=== PATIENT | male | born 1935 | race Caucasian/White ===

== ENCOUNTER 2016-04-03 07:35 | Outpatient (CLI) | payer MEDICARE ==
[2016-04-03 12:10] LABS: INR-International Normal Ratio 2.2; Prothrombin Time 24.2 SEC (12.0-14.7)
== END 2016-04-03 07:36 | disposition home or self-care (01) ==
LOC: MADLAB 07:35
PROVIDERS: ATTEND Internal Medicine Cardiovascular Disease
DX: I48.91 Unspecified atrial fibrillation (principal)
CPT/HCPCS: 36415; 85610

== ENCOUNTER 2016-04-29 12:59 | Emergency (ER) | payer MEDICARE ==
[2016-04-29] MEDS ORDERED: Labetalol HCl 100 MG/20 ML VIAL ONE (14:07)
[2016-04-29 14:24] LABS: INR-International Normal Ratio 2.5; PTT 37.7 SEC (22.9-36.1); Prothrombin Time 26.9 SEC (12.0-14.7)
[2016-04-29 14:27] LABS: #Basophils 0.1 thou/uL (0.0-0.2); #Eosinphils 0.2 thou/uL (0.0-0.7); #Lymphocytes 1.6 thou/uL (1.20-3.40); #Monocytes 0.7 thou/uL (0.11-0.59); #Neutrophils 6.9 thou/uL (1.40-6.50); %Basophils 1.4 % (0.0-1.0); %Eosinophils 2.3 % (0.0-10.0); %Lymphocytes 16.5 % (21.0-51.0); %Monocytes 7.5 % (0.0-10.0); %Neutrophils 72.2 % (42.0-75.0); Hemoglobin 15.3 g/dL (14.0-18.0); Mean Corpuscular HGB CONC 32.4 g/dL (32.0-36.0); Mean Corpuscular Hemoglobin 28.9 pg (27.0-31.0); Mean Corpuscular Volume 89.1 fl (80.0-94.0); Mean Platelet Volume 8.2 fL (7.4-10.4); Platelet Count 273 thou/uL (130-400); RBC Distribution Width 17.2 % (11.5-14.5); Red Blood Cell (RBC) Count 5.31 mill/uL (4.70-6.10); White Blood Cell (WBC) Count 9.5 thou/uL (4.8-10.8)
[2016-04-29 14:36] LABS: ALT (SGPT) 15 U/L (0-55); AST (SGOT) 22 U/L (5-34); Alkaline Phosphatase 202 U/L (40-150); Anion Gap 17 mmol/L (10-20); BUN (Urea Nitrogen) 22 mg/dL (8.4-25.7); Bilirubin, Total 0.8 mg/dL (0.2-1.2); CK (CPK) 61 U/L (30-200); Calc. Creatinine Clearance 0 mL/min (70-130); Calcium 9.4 mg/dL (7.8-10.44); Carbon Dioxide 25 mmol/L (23-31); Chloride 102 mmol/L (98-107); Estimated GFR-MDRD 67; Glucose 106 mg/dL (83-110); Potassium 4.1 mmol/L (3.5-5.1); Sodium 140 mmol/L (136-145)
[2016-04-29] MEDS ORDERED: Triple Antibiotic Oint 1 GM Packet ONE (14:39)
[2016-04-29 14:43] LABS: CKMB 1.7 ng/mL (0-6.6); Troponin I Less than 0.010 ng/mL (< 0.028)
--- NOTE | 2016-04-29 15:10 | RAD ---
CHEST ONE VIEW: History: Dyspnea. Comparison: 11-26-14 FINDINGS: Portable upright chest demonstrates cardiopulmonary and pulmonary vascular prominence. Diffuse reti cular nodular opacities are noted. Small left sided pleural effusion is suspected. There are paren chymal changes in both lung bases. No pneumothorax. IMPRESSION: Congestive heart failure. Superimposed pneumonia in the lung bases cannot be excluded. Continues s urveillance is excluded. POS: [facility]
--- NOTE | 2016-04-29 16:41 | ERRECORD ---
[facility] EMERGENCY RECORD HPI WEAK-DIZZY (14:20 LLDO) CHIEF COMPLAINT: Patient presents for evaluation of weakness, Patient presents for evaluation of dizziness, Patient presents for evaluation of had an episode of sinus pressure and dizziness. while out and running errands this morning. all sx now gone and pt feels perfectly normal. HISTORIAN: History provided by patient, History provided by patient's family. LOCATION: Symptoms are generalized. QUALITY: Patient is alert and oriented to person, place and time, Hubbard coma score is 15, denies any pain, earlier or now. TIME COURSE: Sudden onset of symptoms, Symptoms have resolved. ASSOCIATED WITH: No associated symptoms. EXACERBATED BY: Patient's condition exacerbated by nothing. RELIEVED BY: Patient's condition relieved by time. ROS CONSTITUTIONAL: Negative constitutional review of systems, had some sinus pressure this morning but not now. (14:14 LLDO) EYES: Negative eye review of systems, Historian denies eye pain, denies eye redness, denies eye discharge. (14:18 LLDO) ENT: Historian reports sinus pain, now gone. (14:14 LLDO) CARDIOVASCULAR: Negative cardiovascular review of systems, Historian denies chest pain, no radiation, Historian denies diaphoresis, denies paroxysmal nocturnal dyspnea, denies syncope. (14:18 LLDO) RESPIRATORY: Negative respiratory review of systems, Historian denies cough, denies shortness of breath, denies sputum. (14:18 LLDO) GI: Negative gastrointestinal review of systems, Historian denies abdominal pain, denies constipation, denies diarrhea, denies nausea, denies vomiting. (14:18 LLDO) MUSCULOSKELETAL: Negative musculoskeletal review of systems, Historian denies arthralgias, denies fall, denies injury, denies myalgias. (14:18 LLDO) NEUROLOGIC: Historian reports dizziness, but not now. says the dizziness is now gone. (14:14 LLDO) HEMO/LYMPHATIC: Normal hematologic/lymphatic system review, Historian denies abnormal blood clotting, denies gum bleeding, denies petechiae. (14:18 LLDO) ALLERGIC/IMMUNOLOGIC: Normal allergy/immunologic system review, Historian denies eczema, denies environmental allergies, denies food allergies. (14:18 LLDO) PSYCHIATRIC: Negative psychiatric review of systems, Historian denies alcohol abuse, denies anxiety, denies depression, denies drug abuse, denies hallucinations. (14:18 LLDO) NOTES: All systems reviewed, negative except as described above. (14:14 LLDO) &a-1R&a+25V*p+0X*[id number]*c202B*c15G*c2P*p-0X&a-25V&a+1R Name: Howard Wallace : 1935 M81 MedRec: [id number] AcctNum: [id number] Prepared: Jerilyn Apr 29, 2016 17:55 by Interface Page 1 of 4 pMD [facility] EMERGENCY RECORD PAST MEDICAL HISTORY MEDICAL HISTORY: Past medical history includes cardiac history, arrhythmia, atrial fibrillation, Past medical history includes history of hyperlipidemia, Past medical history includes history of hypertension, Past medical history includes history of malignancy, bladder ca, Past medical history includes pulmonary disease, chronic obstructive pulmonary disease. (13:14 SCHI) MALE SURGICAL HISTORY: bladder , heart cath. (13:14 SCHI) SOCIAL HISTORY: Patient is a former tobacco user. (13:14 SCHI) NOTES: Nursing records reviewed, Agree with nursing records, Medication list reviewed. (14:18 LLDO) KNOWN ALLERGIES No Known Drug Allergies CURRENT MEDICATIONS (13:31 SCHI) Aspir-81: TABLET, DELAYED RELEASE (ENTERIC COATED) : Strength - 81 mg : ORAL Patient Dose: 1 tab(s) Oral once a day.today. atenolol: TABLET : Strength - 25 mg : ORAL Patient Dose: 100 once a day. pravastatin: TABLET : Strength - 20 mg : ORAL Patient Dose: 40 mg/min null once a day. ProAir HFA: HFA AEROSOL WITH ADAPTER (GRAM) : Strength - 90 mcg : INHALATION Patient Dose: every 4 hours prn. Symbicort: HFA AEROSOL WITH ADAPTER (GRAM) : Strength - 160 mcg-4.5 mcg/actuation : INHALATION Patient Dose: 2 puff(s) Inhaler 2 times a day. Avodart: CAPSULE : Strength - 0.5 mg : ORAL Patient Dose: once a day. Coumadin: TABLET : Strength - 4 mg : ORAL Patient Dose: once a day. Cardizem LA: TABLET, EXTENDED RELEASE 24 HR : Strength - 360 mg : ORAL Patient Dose: once a day. VITAL SIGNS VITAL SIGNS: BP: 170/122, Pulse: 121, Resp: 20 (Non-Labored), Temp: 98 (Tympanic), Pain: 0, O2 sat: 90, Time: 04/29/2016 13:00. (13:00 SCHI) BP: 181/111, Pulse: 131, Resp: 20, Pain: 0, O2 sat: 91 on Room Air, Time: 04/29/2016 13:55. (13:55 SCHI) &a-1R&a+25V*p+0X*[id number]*c202B*c15G*c2P*p-0X&a-25V&a+1R Name: Howard Wallace : 1935 M81 MedRec: [id number] AcctNum: [id number] Prepared: Jerilyn Apr 29, 2016 17:55 by Interface Page 2 of 4 pMD [facility] EMERGENCY RECORD BP: 172/103, Pulse: 105, Time: 04/29/2016 14:34. (14:34 SCHI) BP: 158/108, Pulse: 100, Resp: 18, Time: 04/29/2016 14:51. (14:51 SCHI) BP: 171/114, Pulse: 90, Time: 04/29/2016 15:00. (15:00 SCHI) BP: 132/100, Pulse: 97, Time: 04/29/2016 15:13. (15:13 SCHI) BP: 164/101, Pulse: 89, Time: 04/29/2016 15:39. (15:39 SCHI) BP: 172/107, Pulse: 87, Resp: 18, Temp: 98.1 (Tympanic), Pain: 0, O2 sat: 90 on Room Air, Time: 04/29/2016 16:00. (16:00 SCHI) PHYSICAL EXAM CONSTITUTIONAL: Vital signs reviewed, Patient afebrile, Pulse, was 131 on arrival but 106 now, Blood pressure, BP ELEVATED. says he forgot to take his bp meds this morning, Respiratory rate normal, Patient appears non toxic, Patient appears pain free, Patient alert and oriented to person, place and time. (14:16 LLDO) HEAD: Head exam normal, Head exam included findings of head atraumatic, normocephalic. (14:18 LLDO) EYES: Eye exam normal, Eye exam included findings of eyelids normal to inspection, Pupils equally round and reactive to light, Extraocular muscles intact. (14:18 LLDO) ENT: ENT exam normal, Ear exam normal, Nose exam normal. (14:18 LLDO) NECK: Neck exam normal, Neck exam included findings of normal range of motion, Trachea midline, no meningeal signs, no tenderness. (14:18 LLDO) RESPIRATORY CHEST: Respiratory and chest exam normal, Respiratory exam included findings of no respiratory distress, Breath sounds clear, Chest exam included findings of chest movement symmetrical, Chest expansion equal. (14:18 LLDO) CARDIOVASCULAR: Cardiovascular assessment normal, Cardiovascular exam included findings of heart rate regular rate and rhythm, Heart sounds normal. (14:18 LLDO) ABDOMEN MALE: Abdominal exam normal, Abdominal exam included findings of abdomen nontender, Bowel sounds normal, no peritoneal signs. (14:18 LLDO) BACK: Back exam normal, Back exam included findings of normal inspection, range of motion normal. (14:18 LLDO) UPPER EXTREMITY: Upper extremity exam normal, Upper extremity exam included findings of inspection normal, Range of motion normal. (14:18 LLDO) LOWER EXTREMITY: Lower extremity exam normal, Lower extremity exam included findings of inspection normal, Range of motion normal. (14:18 LLDO) NEURO: Neuro exam normal, Neuro exam findings include patient oriented to person, place and time, Speech normal, Hubbard coma scale 15. (14:18 LLDO) SKIN: Skin exam normal, Skin exam included findings of skin warm, dry, and normal in color, no rash. (14:18 LLDO) PSYCHIATRIC: Psychiatric exam normal, Psychiatric exam included findings of patient oriented to person place and time, Normal affect, &a-1R&a+25V*p+0X*t9901L*c202B*c15G*c2P*p-0X&a-25V&a+1R Name: Howard Wallace Jimena : 1935 M81 MedRec: [id number] AcctNum: [id number] Prepared: Jerilyn Apr 29, 2016 17:55 by Interface Page 3 of 4 pMD [facility] EMERGENCY RECORD Judgment normal. (14:18 LLDO) MEDICATION ADMINISTRATION SUMMARY Drug Name: labetalol intravenous, Dose Ordered: 10 mg, Route: IV Push, Status: Given, Time: 15:12 04/29/2016, Drug Name: Cardizem intravenous, Dose Ordered: 10 mg, Route: IV Push, Status: Given, Time: 15:11 04/29/2016, Drug Name: Cardizem intravenous, Dose Ordered: 10 mg, Route: IV Push, Status: Given, Time: 14:23 04/29/2016, Drug Name: labetalol intravenous, Dose Ordered: 10 mg, Route: IV Push, Status: Given, Time: 14:17 04/29/2016, Detailed record available in Medication Service section. DOCTOR NOTES (16:05 LLDO) TEXT: bp moving in the right direction. labs all good except for an elevated bnp and some xray evidence of chf. discussed this with him and he will f/u with parking cashier, dr. sanchez. PROBLEM LIST No recorded problems DIAGNOSIS (16:08 LLDO) FINAL: PRIMARY: Hypertension, ADDITIONAL: CHF. PRESCRIPTION (16:09 LLDO) Lasix oral: TABLET : 20 mg : ORAL : Quantity: 1 Unit: tab(s) Route: ORAL Schedule: once a day (in the morning) Dispense: 30 Unit: tab(s) May substitute. Refills: 1 . NOTES: No Refills. DISPOSITION PATIENT: Disposition Type: Discharge, Disposition: *Discharge Home. (16:08 LLDO) [facility] left the department. [facility]16:32 [facility] Ash: LLDO=MD Hanh, Andrae SCHI=EMMA Berger, Gentryinda &a-1R&a+25V*p+0X*[id number]*c202B*c15G*c2P*p-0X&a-25V&a+1R Name: Howard Wallace : 1935 M81 MedRec: [id number] AcctNum: [id number] Prepared: Jerilyn Apr 29, 2016 17:55 by Interface Page 4 of 4 pMD MTDD
--- NOTE | 2016-04-29 16:47 | PICIS ---
[facility] EMERGENCY RECORD TRIAGE (SatApr 29, 2016 13:12 SCHI) TRIAGE NOTES: SINUS PRESSURE THIS MORNING, DIZZY AND FELL, FEELS FINE NOW. (SatApr 29, 2016 13:12 SCHI) PATIENT: NAME: Howard Wallace, AGE: 81, GENDER: male, : Sat 1935, TIME OF GREET: SatApr 29, 2016 12:59, PREFERRED LANGUAGE: Turkish, ETHNICITY: Not or , FALL RISK: NO, ECODE BILLING MAP: [facility], SSN: [id number], Zip Code: [address], KG WEIGHT: 87.54, PHONE: CELL, , , PERSON ID: [id number], PCP: MD RADER IMELDA. ([place] Apr 29, 2016 13:12 SCHI) COMPLAINT: FALL/HNT. ([place] Apr 29, 2016 13:12 SCHI) ADMISSION: URGENCY: 3 Urgent, ADMISSION SOURCE: Home, TRANSPORT: AMBULANCE - [facility], BED: ED -01. ([place] Apr 29, 2016 13:12 SCHI) ASSESSMENT: Assessment: ALERT AND ORIENTED X 4, SKIN WARM AND DRY RESP EVEN AND UNLABORED,. (13:14 SCHI) PAIN: No complaint of pain. (13:14 SCHI) TRIAGE SCREENING: Patient denies suicidal ideation, Patient denies presence of domestic violence. (13:14 SCHI) TREATMENTS IN PROGRESS: See EMS Record. (13:14 SCHI) PROVIDERS: TRIAGE NURSE: Charlotte Berger RN. ([place] Apr 29, 2016 13:12 SCHI) VITAL SIGNS: BP 170/122, Pulse 121, Resp 20, (Non-Labored), Temp 98, (Tympanic), Pain 0, O2 Sat 90, Time 04/29/2016 13:00. (13:00 SCHI) PREVIOUS VISIT ALLERGIES: No Known Allergies. ([place] Apr 29, 2016 13:12 SCHI) No Known Allergies. (13:14 SCHI) KNOWN ALLERGIES No Known Drug Allergies CURRENT MEDICATIONS (13:31 SCHI) Aspir-81: TABLET, DELAYED RELEASE (ENTERIC COATED) : Strength - 81 mg : ORAL Patient Dose: 1 tab(s) Oral once a day.today. atenolol: TABLET : Strength - 25 mg : ORAL Patient Dose: 100 once a day. pravastatin: TABLET : Strength - 20 mg : ORAL Patient Dose: 40 mg/min null once a day. ProAir HFA: HFA AEROSOL WITH ADAPTER (GRAM) : Strength - 90 mcg : INHALATION Patient Dose: every 4 hours prn. Symbicort: HFA AEROSOL WITH ADAPTER (GRAM) : Strength - 160 mcg-4.5 mcg/actuation : INHALATION Patient Dose: 2 puff(s) Inhaler 2 times a day. Avodart: CAPSULE : Strength - 0.5 mg : ORAL Patient Dose: once a day. &a-1R&a+25V*p+0X*i4604R*c202B*c15G*c2P*p-0X&a-25V&a+1R Name: Howard Wallace : 1935 M81 MedRec: [id number] AcctNum: [id number] Prepared: Jerilyn Apr 29, 2016 18:00 by Interface Page 1 of 11 pMD [facility] EMERGENCY RECORD Coumadin: TABLET : Strength - 4 mg : ORAL Patient Dose: once a day. Cardizem LA: TABLET, EXTENDED RELEASE 24 HR : Strength - 360 mg : ORAL Patient Dose: once a day. VITAL SIGNS VITAL SIGNS: BP: 170/122, Pulse: 121, Resp: 20 (Non-Labored), Temp: 98 (Tympanic), Pain: 0, O2 sat: 90, Time: 04/29/2016 13:00. (13:00 SCHI) BP: 181/111, Pulse: 131, Resp: 20, Pain: 0, O2 sat: 91 on Room Air, Time: 04/29/2016 13:55. (13:55 SCHI) BP: 172/103, Pulse: 105, Time: 04/29/2016 14:34. (14:34 SCHI) BP: 158/108, Pulse: 100, Resp: 18, Time: 04/29/2016 14:51. (14:51 SCHI) BP: 171/114, Pulse: 90, Time: 04/29/2016 15:00. (15:00 SCHI) BP: 132/100, Pulse: 97, Time: 04/29/2016 15:13. (15:13 SCHI) BP: 164/101, Pulse: 89, Time: 04/29/2016 15:39. (15:39 SCHI) BP: 172/107, Pulse: 87, Resp: 18, Temp: 98.1 (Tympanic), Pain: 0, O2 sat: 90 on Room Air, Time: 04/29/2016 16:00. (16:00 SCHI) NURSING ASSESSMENT: NEURO (13:23 SCHI) GCS: (6) Obeying command:, (5) Orientated:, (4) Spontaneous eye opening., Result: 15. NIHSS: CVA assessment findings: Level of consciousness: alert, keenly responsive (0), Questions: answers both questions correctly (0), Commands: performs both tasks correctly (0), Best gaze: normal (0), Visual: no visual loss (0), Facial palsy: normal symmetrical movement (0), Motor arm left: no drift, arm stays 90/45 degrees for full 10 seconds (0), Motor arm right: no drift, arm stays 90 or45 degrees for full 10 seconds (0), Motor left leg: no drift, leg stays at 30 degrees for full five seconds (0), Motor right leg: no drift, leg stays at 30 degrees for full five seconds (0), Limb ataxia: absent -if 0, go to sensory (0), Sensory: normal, no sensory loss (0), Best language: no aphasia; normal (0), Dysarthria: normal (0), Extinction and Inattention: normal (0), Total score 0. CONSTITUTIONAL: Patient arrives, via stretcher, via [facility], Gait steady, History obtained from patient, Patient appears comfortable, Patient cooperative, Patient alert, Oriented to person, place and time, Skin warm, Skin dry, Skin normal in color, Mucous membranes pink, Mucous membranes moist, Patient is well-groomed, Patient complains of DIZZINESS, fell to knees, c/o sinus pressure this morning and took tylenol. PAIN: Patient rates pain as 0 out of 10. NEURO: Pupils equally round and reactive to light, Able to close eyes, Face symmetrical, Speech normal, Associated with dizziness described as, feelings of movement. NURSING PROCEDURE: TRAIN CONTROL ELECTRONIC TECHNICIAN (13:23 SCHI) TRAIN CONTROL ELECTRONIC TECHNICIAN: Patient placed on athletic monitor, Patient &a-1R&a+25V*p+0X*b1977R*c202B*c15G*c2P*p-0X&a-25V&a+1R Name: Howard Wallace : 1935 M81 MedRec: [id number] AcctNum: [id number] Prepared: Jerilyn Apr 29, 2016 18:00 by Interface Page 2 of 11 pMD [facility] EMERGENCY RECORD placed on non-invasive blood pressure monitor, Patient placed on continuous pulse oximetry, Adult/pediatric oxisensor applied. NURSING PROCEDURE: DISCHARGE NOTE (16:25 SCHI) DISCHARGE: Patient discharged to home, ambulating without assistance, family driving, accompanied by other family member, Summary of Care printed/ provided, Patient requested and was provided an electronic copy of Discharge Instructions, Transition record given to patient, Discharge instructions given to patient, Simple or moderate discharge teaching performed, Prescriptions given and instructions on side effects given, Medication reconciliation form given, Above person(s) verbalized understanding of discharge instructions and follow-up care, Patient treated and evaluated by physician. BELONGINGS: Belongings and valuables with patient at time of discharge include:, Belongings remain with patient, Valuables remain with patient. SAFETY: Side rails up, Cart/Stretcher in lowest position, Family at bedside, Hospital ID band on. NURSING PROCEDURE: EKG CHART (13:55 SCHI) PATIENT IDENTIFIER: Patient actively involved in identification process, Patient's identity verified by patient stating name, Patient's identity verified by patient stating date. EKG: EKG indicated for complaint of palpitations, 12 lead EKG performed on the left chest, done by CAITIE RN. NOTES: Emotional support needed and given, Patient tolerated procedure well. SAFETY: Side rails up, Cart/Stretcher in lowest position, Family at bedside, Hospital ID band on. NURSING PROCEDURE: IV PATIENT IDENITIFIER: Patient actively involved in identification process, Patient's identity verified by patient stating name, Patient's identity verified by patient stating date, Patient's identity verified by hospital ID bracelet. (13:55 SCHI) IV SITE 1: IV therapy indicated for hydration, IV therapy indicated for medication administration, IV established, to the right antecubital, using a 20 gauge catheter, in one attempt, IV site prepped with chloraprep, Saline lock established, Flushed with normal saline (mls): 10, Labs drawn at time of placement, labeled in the presence of the patient and sent to lab. (13:55 SCHI) FOLLOW-UP SITE 1: IV discontinued, due to patient being discharged, catheter intact. (16:25 SCHI) NURSING PROCEDURE: NURSE NOTES NURSES NOTES: Notes: all times are approximate due to care being provided, then documented. (13:23 SCHI) Notes: he remembered that he did not take one of his bp meds this morning "the 360 one". (14:15 SCHI) &a-1R&a+25V*p+0X*b8023X*c202B*c15G*c2P*p-0X&a-25V&a+1R Name: Howard Wallace : 1935 M81 MedRec: [id number] AcctNum: [id number] Prepared: Jerilyn Apr 29, 2016 18:00 by Interface Page 3 of 11 D [facility] EMERGENCY RECORD NURSING PROCEDURE: WOUND CARE (14:52 SCHI) PATIENT IDENTIFIER: Patient actively involved in identification process, Patient's identity verified by hospital ID bracelet. WOUND CARE: Wound site: rt forearm and rt knee, Cause of wound: abrasions from fall, Wound cleansed with Hibiclens. FOLLOW-UP: After procedure, simple dressing applied, using 4x4 dressing, using telfa pad dressing, wrapped with 2 inch coban, NORAH 1 PACKAGE, After procedure, capillary refill less than 2 seconds, After procedure, distal circulation intact, After procedure, distal motor intact, After procedure, distal sensation intact, After procedure, distal pulses present. NOTES: Patient tolerated procedure well. ORDER DETAILS Order Name: B type Natriuretic Peptide, Status: Active, Time: 14:00 04/29/2016, User: TWAN, - Ordered for: MD Schafer Lloyd, - Entered by: MD Schafer Lloyd - Jerilyn Apr 29, 2016 14:00, - Quantity: 1, Order Name: TRAIN CONTROL ELECTRONIC TECHNICIAN ED, Status: Done, Time: 14:02 04/29/2016, User: JANESSA, - Ordered for: MD Schafer Lloyd, - Entered by: MD Schafer Lloyd - Sun Apr 29, 2016 14:01, - Quantity: 1, Order Name: Cardiac Profile w/CKMB & Troponin - I, Status: Active, Time: 14:00 04/29/2016, User: TWAN, - Ordered for: MD Schafer Lloyd, - Entered by: MD Schafer Lloyd - Sun Apr 29, 2016 14:00, - Quantity: 1, Order Name: CBC with Differential, Status: Active, Time: 14:00 04/29/2016, User: LLDO, - Ordered for: MD Schafer Lloyd, - Entered by: MD Schafer Lloyd - Sun Apr 29, 2016 14:00, - Quantity: 1, Order Name: CK (CPK), Status: Active, Time: 14:01 04/29/2016, User: TWAN, - Ordered for: MD Schafer Lloyd, - Entered by: MD Schafer Lloyd - Sun Apr 29, 2016 14:01, - Quantity: 1, Order Name: Comprehensive Metabolic Panel, Status: Active, Time: 14:00 04/29/2016, User: TWAN, - Ordered for: MD Schafer Lloyd, - Entered by: MD Schafer Lloyd - Sun Apr 29, 2016 14:00, - Quantity: 1, Order Name: EKG 12 Lead in Emergency Room, Status: Active, Time: 14:01 04/29/2016, User: TWAN, - Ordered for: MD Schafer Lloyd, - Entered by: MD Schafer Lloyd - Sun Apr 29, 2016 14:01, &a-1R&a+25V*p+0X*s4324P*c202B*c15G*c2P*p-0X&a-25V&a+1R Name: Howard Wallace : 1935 M81 MedRec: [id number] AcctNum: [id number] Prepared: Jerilyn Apr 29, 2016 18:00 by Interface Page 4 of 11 D [facility] EMERGENCY RECORD - Quantity: 1, Order Name: Protime with INR, Status: Active, Time: 14:01 04/29/2016, User: LLDO, - Ordered for: MD Schafer Lloyd, - Entered by: MD Schafer Lloyd - Sun Apr 29, 2016 14:01, - Quantity: 1, Order Name: PTT, Status: Active, Time: 14:01 04/29/2016, User: TWAN, - Ordered for: MD Schafer Lloyd, - Entered by: MD Schafer Lloyd - Sun Apr 29, 2016 14:01, - Quantity: 1, Order Name: SALINE LOCK, Status: Done, Time: 14:02 04/29/2016, User: SCHI, - Ordered for: MD Schafer Lloyd, - Entered by: MD Schafer Lloyd - Sun Apr 29, 2016 14:01, - Quantity: 1, Order Name: Urinalysis w/ Rflx Microscopic, Status: Active, Time: 14:00 04/29/2016, User: TWAN, - Ordered for: MD Schafer Lloyd, - Entered by: MD Schafer Lloyd - Sun Apr 29, 2016 14:00, - Quantity: 1, Order Name: XR Chest 1 View Portable, Status: Active, Time: 14:01 04/29/2016, User: TWAN, - Ordered for: MD Schafer Lloyd, - Entered by: MD Schafer Lloyd - Sun Apr 29, 2016 14:01, - Quantity: 1. MEDICATION ADMINISTRATION SUMMARY Drug Name: labetalol intravenous, Dose Ordered: 10 mg, Route: IV Push, Status: Given, Time: 15:12 04/29/2016, Drug Name: Cardizem intravenous, Dose Ordered: 10 mg, Route: IV Push, Status: Given, Time: 15:11 04/29/2016, Drug Name: Cardizem intravenous, Dose Ordered: 10 mg, Route: IV Push, Status: Given, Time: 14:23 04/29/2016, Drug Name: labetalol intravenous, Dose Ordered: 10 mg, Route: IV Push, Status: Given, Time: 14:17 04/29/2016, Detailed record available in Medication Service section. MEDICATION SERVICE Cardizem intravenous: Order: Cardizem intravenous (diltiazem HCl) - Dose: 10 mg : IV Push Schedule: Now Ordered by: Andrae Schafer MD Entered by: MD Jerilyn Ley Apr 29, 2016 14:07 Documented as given by: EMMA Smart Apr 29, 2016 14:23 Patient, Medication, Dose, Route and Time verified prior to administration. IV SITE #1 IVP, subsequent different medication, Slowly, Catheter placement confirmed via flush prior to administration, IV site without signs or symptoms of infiltration during medication &a-1R&a+25V*p+0X*c2420K*c202B*c15G*c2P*p-0X&a-25V&a+1R Name: Howard Wallace : 1935 M81 MedRec: [id number] AcctNum: [id number] Prepared: SatApr 29, 2016 18:00 by Interface Page 5 of 11 pMD [facility] EMERGENCY RECORD administration, No swelling during administration, No drainage during administration, IV flushed after administration, Correct patient, time, route, dose and medication confirmed prior to administration, Patient advised of actions and side-effects prior to administration, Allergies confirmed and medications reviewed prior to administration. Cardizem intravenous: Order: Cardizem intravenous (diltiazem HCl) - Dose: 10 mg : IV Push Schedule: Now Ordered by: Andrae Schafer MD Entered by: MD Jerilyn Ley Apr 29, 2016 15:03 Documented as given by: EMMA Smart Apr 29, 2016 15:11 Patient, Medication, Dose, Route and Time verified prior to administration. IV SITE #1 IVP, repeat same medication, Catheter placement confirmed via flush prior to administration, IV site without signs or symptoms of infiltration during medication administration, No swelling during administration, No drainage during administration, IV flushed after administration, Correct patient, time, route, dose and medication confirmed prior to administration, Patient advised of actions and side-effects prior to administration, Allergies confirmed and medications reviewed prior to administration. labetalol intravenous: Order: labetalol intravenous (labetalol HCl) - Dose: 10 mg : IV Push Schedule: Now Ordered by: Andrae Schafer MD Entered by: MD Jerilyn Ley Apr 29, 2016 14:06 , Acknowledged by: EMMA Smart Apr 29, 2016 14:06 Documented as given by: EMMA Smart Apr 29, 2016 14:17 Patient, Medication, Dose, Route and Time verified prior to administration. IV SITE #1 IVP, initial medication, Catheter placement confirmed via flush prior to administration, IV site without signs or symptoms of infiltration during medication administration, No swelling during administration, No drainage during administration, IV flushed after administration, Correct patient, time, route, dose and medication confirmed prior to administration, Patient advised of actions and side-effects prior to administration, Allergies confirmed and medications reviewed prior to administration. labetalol intravenous: Order: labetalol intravenous (labetalol HCl) - Dose: 10 mg : IV Push Schedule: Now Ordered by: Andrae Schafer MD Entered by: MD Jerilyn Ley Apr 29, 2016 15:03 Documented as given by: EMMA Smart Apr 29, 2016 15:12 Patient, Medication, Dose, Route and Time verified prior to administration. IV SITE #1 IVP, repeat same medication. HPI WEAK-DIZZY (14:20 LLDO) CHIEF COMPLAINT: Patient presents for evaluation of &a-1R&a+25V*p+0X*d9141V*c202B*c15G*c2P*p-0X&a-25V&a+1R Name: Howard Wallace : 1935 M81 MedRec: [id number] AcctNum: [id number] Prepared: Jerilyn Apr 29, 2016 18:00 by Interface Page 6 of 11 pMD [facility] EMERGENCY RECORD weakness, Patient presents for evaluation of dizziness, Patient presents for evaluation of had an episode of sinus pressure and dizziness. while out and running errands this morning. all sx now gone and pt feels perfectly normal. HISTORIAN: History provided by patient, History provided by patient's family. LOCATION: Symptoms are generalized. QUALITY: Patient is alert and oriented to person, place and time, [place] coma score is 15, denies any pain, earlier or now. TIME COURSE: Sudden onset of symptoms, Symptoms have resolved. ASSOCIATED WITH: No associated symptoms. EXACERBATED BY: Patient's condition exacerbated by nothing. RELIEVED BY: Patient's condition relieved by time. ROS CONSTITUTIONAL: Negative constitutional review of systems, had some sinus pressure this morning but not now. (14:14 LLDO) EYES: Negative eye review of systems, Historian denies eye pain, denies eye redness, denies eye discharge. (14:18 LLDO) ENT: Historian reports sinus pain, now gone. (14:14 LLDO) CARDIOVASCULAR: Negative cardiovascular review of systems, Historian denies chest pain, no radiation, Historian denies diaphoresis, denies paroxysmal nocturnal dyspnea, denies syncope. (14:18 LLDO) RESPIRATORY: Negative respiratory review of systems, Historian denies cough, denies shortness of breath, denies sputum. (14:18 LLDO) GI: Negative gastrointestinal review of systems, Historian denies abdominal pain, denies constipation, denies diarrhea, denies nausea, denies vomiting. (14:18 LLDO) MUSCULOSKELETAL: Negative musculoskeletal review of systems, Historian denies arthralgias, denies fall, denies injury, denies myalgias. (14:18 LLDO) NEUROLOGIC: Historian reports dizziness, but not now. says the dizziness is now gone. (14:14 LLDO) HEMO/LYMPHATIC: Normal hematologic/lymphatic system review, Historian denies abnormal blood clotting, denies gum bleeding, denies petechiae. (14:18 LLDO) ALLERGIC/IMMUNOLOGIC: Normal allergy/immunologic system review, Historian denies eczema, denies environmental allergies, denies food allergies. (14:18 LLDO) PSYCHIATRIC: Negative psychiatric review of systems, Historian denies alcohol abuse, denies anxiety, denies depression, denies drug abuse, denies hallucinations. (14:18 LLDO) NOTES: All systems reviewed, negative except as described above. (14:14 LLDO) PAST MEDICAL HISTORY MEDICAL HISTORY: Past medical history includes cardiac &a-1R&a+25V*p+0X*t4352H*c202B*c15G*c2P*p-0X&a-25V&a+1R Name: Howard Wallace : 1935 M81 MedRec: [id number] AcctNum: [id number] Prepared: Jerilyn Apr 29, 2016 18:00 by Interface Page 7 of 11 pMD [facility] EMERGENCY RECORD history, arrhythmia, atrial fibrillation, Past medical history includes history of hyperlipidemia, Past medical history includes history of hypertension, Past medical history includes history of malignancy, bladder ca, Past medical history includes pulmonary disease, chronic obstructive pulmonary disease. (13:14 SCHI) MALE SURGICAL HISTORY: bladder , heart cath. (13:14 SCHI) SOCIAL HISTORY: Patient is a former tobacco user. (13:14 SCHI) NOTES: Nursing records reviewed, Agree with nursing records, Medication list reviewed. (14:18 LLDO) PHYSICAL EXAM CONSTITUTIONAL: Vital signs reviewed, Patient afebrile, Pulse, was 131 on arrival but 106 now, Blood pressure, BP ELEVATED. says he forgot to take his bp meds this morning, Respiratory rate normal, Patient appears non toxic, Patient appears pain free, Patient alert and oriented to person, place and time. (14:16 LLDO) HEAD: Head exam normal, Head exam included findings of head atraumatic, normocephalic. (14:18 LLDO) EYES: Eye exam normal, Eye exam included findings of eyelids normal to inspection, Pupils equally round and reactive to light, Extraocular muscles intact. (14:18 LLDO) ENT: ENT exam normal, Ear exam normal, Nose exam normal. (14:18 LLDO) NECK: Neck exam normal, Neck exam included findings of normal range of motion, Trachea midline, no meningeal signs, no tenderness. (14:18 LLDO) RESPIRATORY CHEST: Respiratory and chest exam normal, Respiratory exam included findings of no respiratory distress, Breath sounds clear, Chest exam included findings of chest movement symmetrical, Chest expansion equal. (14:18 LLDO) CARDIOVASCULAR: Cardiovascular assessment normal, Cardiovascular exam included findings of heart rate regular rate and rhythm, Heart sounds normal. (14:18 LLDO) ABDOMEN MALE: Abdominal exam normal, Abdominal exam included findings of abdomen nontender, Bowel sounds normal, no peritoneal signs. (14:18 LLDO) BACK: Back exam normal, Back exam included findings of normal inspection, range of motion normal. (14:18 LLDO) UPPER EXTREMITY: Upper extremity exam normal, Upper extremity exam included findings of inspection normal, Range of motion normal. (14:18 LLDO) LOWER EXTREMITY: Lower extremity exam normal, Lower extremity exam included findings of inspection normal, Range of motion normal. (14:18 LLDO) NEURO: Neuro exam normal, Neuro exam findings include patient oriented to person, place and time, Speech normal, [place] coma scale 15. (14:18 LLDO) &a-1R&a+25V*p+0X*f6406P*c202B*c15G*c2P*p-0X&a-25V&a+1R Name: Howard Wallace : 1935 M81 MedRec: [id number] AcctNum: [id number] Prepared: Jerilyn Apr 29, 2016 18:00 by Interface Page 8 of 11 pMD [facility] EMERGENCY RECORD SKIN: Skin exam normal, Skin exam included findings of skin warm, dry, and normal in color, no rash. (14:18 LLDO) PSYCHIATRIC: Psychiatric exam normal, Psychiatric exam included findings of patient oriented to person place and time, Normal affect, Judgment normal. (14:18 LLDO) EVENTS TRANSFER: Triage to Emergency Main ED -01. (Jerilyn Apr 29, 2016 13:12 SCHI) Removed from Emergency Main ED -01. (16:32 SCHI) DOCTOR NOTES (16:05 LLDO) TEXT: bp moving in the right direction. labs all good except for an elevated bnp and some xray evidence of chf. discussed this with him and he will f/u with business process consultant, dr. sanchez. PROBLEM LIST No recorded problems DIAGNOSIS (16:08 LLDO) FINAL: PRIMARY: Hypertension, ADDITIONAL: CHF. DISPOSITION PATIENT: Disposition Type: Discharge, Disposition: *Discharge Home. (16:08 LLDO) Patient left the department. (16:32 SCHI) INSTRUCTION (16:10 LLDO) DISCHARGE: CHF, GENERAL, HYPERTENSION, ESTABLISHED, OUT OF CONTROL. FOLLOWUP: MD PRASANTH, RASHI, [facility], [address] [place] [id number], [phone], Follow up with Primary Care Physician in 10-14 days. SPECIAL: Follow-up with your PCP. PRESCRIPTION (16:09 LLDO) Lasix oral: TABLET : 20 mg : ORAL : Quantity: 1 Unit: tab(s) Route: ORAL Schedule: once a day (in the morning) Dispense: 30 Unit: tab(s) May substitute. Refills: 1 . NOTES: No Refills. IMAGING MIST FORM: Image captured from scanner. (14:04 SCHI) AMBULANCE REPORT: Image captured from scanner. (14:04 SCHI) *DISCHARGE INSTRUCTIONS RECEIPT: Image captured from scanner. (16:30 SCHI) *SUPPLY CHARGE SHEET: Image captured from scanner. (16:30 SCHI) &a-1R&a+25V*p+0X*o7428Y*c202B*c15G*c2P*p-0X&a-25V&a+1R Name: Howard Wallace : 1935 M81 MedRec: [id number] AcctNum: [id number] Prepared: [place] Apr 29, 2016 18:00 by Interface Page 9 of 11 pMD [facility] EMERGENCY RECORD ADMIN DIGITAL SIGNATURE: EMMA Berger, [place]. (16:32 SCHI) MD Schafer Lloyd. (17:49 LLDO) RESULTS LABORATORY: CK (CPK) Collection DT: [place] Apr 29, 2016 14:15, CK (CPK) 61 U/L, Range (30-200). (14:38 SCHI) Comprehensive Metabolic Panel Collection DT: [place] Apr 29, 2016 14:15, Sodium 140 mmol/L, Range (136-145), Potassium 4.1 mmol/L, Range (3.5-5.1), Chloride 102 mmol/L, Range (98-107), Carbon Dioxide 25 mmol/L, Range (23-31), Anion Gap 17 mmol/L, Range (10-20), BUN (Urea Nitrogen) 22 mg/dL, Range (8.4-25.7), Creatinine 1.06 mg/dL, Range (0.7-1.3), Estimated GFR-MDRD 67 , Reference Range for Estimated GFR: Greater than 90, mL/min/1.73 m2 NOTE: The MDRD equation has not been validated for use, with the elderly (over 70 years of age), women, patients with, serious comorbid condition or persons with extremes of body size, muscle, mass, or nutritional status. , Glucose 106 mg/dL, Range (83-110), Calcium 9.4 mg/dL, Range (7.8-10.44), Bilirubin, Total 0.8 mg/dL, Range (0.2-1.2), Protein, Total 8.0 g/dL, Range (5.8-8.1), NOTE: Plasma values are generally 0.3 to 0.5 g/dL higher than serum values, due to the presence of fibrinogen. , Albumin 4.0 g/dL, Range (3.4-4.8), *Globulin 4.0 - H g/dL, Range (2.4-3.5), *Alb/Glob Ratio 1.0 - L g/dL, Range (1.2-2.2), *Alkaline Phosphatase 202 - H U/L, Range (40-150), AST (SGOT) 22 U/L, Range (5-34), ALT (SGPT) 15 U/L, Range (0-55). (14:38 SCHI) CBC with Differential Collection DT: Jerilyn Apr 29, 2016 14:15, White Blood Cell (WBC) Count 9.5 thou/uL, Range (4.8-10.8), Red Blood Cell (RBC) Count 5.31 mill/uL, Range (4.70-6.10), Hemoglobin 15.3 g/dL, Range (14.0-18.0), Hematocrit 47.3 %, Range (42.0-52.0), Mean Corpuscular Volume 89.1 fl, Range (80.0-94.0), Mean Corpuscular Hemoglobin 28.9 pg, Range (27.0-31.0), Mean Corpuscular HGB CONC 32.4 g/dL, Range (32.0-36.0), *RBC Distribution Width 17.2 - H %, Range (11.5-14.5), Platelet Count 273 thou/uL, Range (130-400), Mean Platelet Volume 8.2 fL, Range (7.4-10.4), %Neutrophils 72.2 %, Range (42.0-75.0), *%Lymphocytes 16.5 - L %, Range (21.0-51.0), %Monocytes 7.5 %, Range (0.0-10.0), %Eosinophils 2.3 %, Range (0.0-10.0), &a-1R&a+25V*p+0X*g6348K*c202B*c15G*c2P*p-0X&a-25V&a+1R Name: Howard Wallace : 1935 M81 MedRec: [id number] AcctNum: [id number] Prepared: Jerilyn Apr 29, 2016 18:00 by Interface Page 10 of 11 pMD [facility] EMERGENCY RECORD *%Basophils 1.4 - H %, Range (0.0-1.0), *#Neutrophils 6.9 - H thou/uL, Range (1.40-6.50), #Lymphocytes 1.6 thou/uL, Range (1.20-3.40), *#Monocytes 0.7 - H thou/uL, Range (0.11-0.59), #Eosinphils 0.2 thou/uL, Range (0.0-0.7), #Basophils 0.1 thou/uL, Range (0.0-0.2). (14:38 [facility]) PTT Collection DT: Jerilyn Apr 29, 2016 14:15, See comment below , Anticoagulant? NONE Medical Necessity SUSPECT COAGULOPATHY , *PTT 37.7 - H SEC, Range (22.9-36.1). (14:38 [facility]) Protime with INR Collection DT: Jerilyn Apr 29, 2016 14:15, See comment below , Anticoagulant? NONE Medical Necessity SUSPECT COAGULOPATHY , *Prothrombin Time 26.9 - H SEC, Range (12.0-14.7), INR-International Normal Ratio 2.5 , ATTENTION: READ CAREFULLY , The, recommended therapeutic ranges for oral anticoagulant treatments are: , , Low Intensity: 1.5 - 2.0 Moderate Intensity: 2.0, - 3.0 High Intensity (1): 2.5 - 3.5 High, Intensity (2): 3.0 - 4.0 CRITICAL: >, 4.0 . (14:38 [facility]) B type Natriuretic Peptide Collection DT: SatApr 29, 2016 14:15, *B type Natriuretic Peptide 629.0 - H pg/mL, Range (0-100). (15:11 [facility]) Cardiac Profile w/CKMB & TropI Collection DT: SatApr 29, 2016 14:15, CKMB 1.7 ng/mL, Range (0-6.6), Troponin I Less than 0.010 ng/mL, Range (< 0.028), Reference Range , 0.00 - 0.028 ng/mL Negative 0.029 - 0.29 ng/mL , Indeterminate Greater or Equal to 0.3 ng/mL Strongly suggests [place] , . (15:11 [facility]) Ash: TWAN=MD Hanh, Andrae LYNN=EMMA Farmer, Noemi RIDDLE=EMMA Berger, Slinda &a-1R&a+25V*p+0X*[id number]*c202B*c15G*c2P*p-0X&a-25V&a+1R Name: Howard Wallace : 1935 M81 MedRec: [id number] AcctNum: [id number] Prepared: SatApr 29, 2016 18:00 by Interface Page 11 of 11 D [facility] MEDICATION RECONCILIATION You were seen in the Emergency Department on: SatApr 29, 2016 KNOWN ALLERGIES No Known Drug Allergies MEDICATIONS GIVEN WHILE IN THE EMERGENCY DEPARTMENT labetalol intravenous (labetalol HCl) - Dose: 10 milligram(s) : IV Push Cardizem intravenous (diltiazem HCl) - Dose: 10 milligram(s) : IV Push Cardizem intravenous (diltiazem HCl) - Dose: 10 milligram(s) : IV Push labetalol intravenous (labetalol HCl) - Dose: 10 milligram(s) : IV Push HOME MEDICATIONS CONTINUE PRESCRIBED Aspir-81 : TABLET, DELAYED RELEASE (ENTERIC COATED) : Strength - 81 mg : ORAL Continue as prescribed Patient had been takin tab(s) Oral once a day. Comment: today. atenolol : TABLET : Strength - 25 mg : ORAL Continue as prescribed Patient had been takin once a day. Avodart : CAPSULE : Strength - 0.5 mg : ORAL Continue as prescribed Patient had been taking: once a day. Cardizem LA : TABLET, EXTENDED RELEASE 24 HR : Strength - 360 mg : ORAL Continue as prescribed Patient had been taking: once a day. Coumadin : TABLET : Strength - 4 mg : ORAL Continue as prescribed Patient had been taking: once a day. pravastatin : TABLET : Strength - 20 mg : ORAL Continue as prescribed Patient had been takin mg/min null once a day. &a-1R&a+25V*p+0X*m2160T*c202B*c15G*c2P*p-0X&a-25V&a+1R Name: Howard Wallace : 1935 81 MedRec: [id number] AcctNum: [id number] Prepared: Jerilyn Apr 29, 2016 18:00 by Interface pMD [facility] MEDICATION RECONCILIATION ProAir HFA : HFA AEROSOL WITH ADAPTER (GRAM) : Strength - 90 mcg : INHALATION Continue as prescribed Patient had been taking: every 4 hours prn. Symbicort : HFA AEROSOL WITH ADAPTER (GRAM) : Strength - 160 mcg-4.5 mcg/actuation : INHALATION Continue as prescribed Patient had been takin puff(s) Inhaler 2 times a day. Notes from the emergency department Reviewed with family Reviewed with patient PRESCRIPTIONS (1) &a-1R&a+25V*p+0X*[id number]*c202B*c15G*c2P*p-0X&a-25V&a+1R Name: Howard Wallace : 1935 M81 MedRec: [id number] AcctNum: [id number] Prepared: Jerilyn Apr 29, 2016 18:00 by Interface pMD [facility]
== END 2016-04-29 16:25 | disposition home or self-care (01) ==
LOC: MADERS 12:59
DX: I11.0 Hypertensive heart disease with heart failure (principal); I50.9 Heart failure, unspecified; E78.5 Hyperlipidemia, unspecified; I48.91 Unspecified atrial fibrillation; J44.9 Chronic obstructive pulmonary disease, unspecified; C50.929 Malignant neoplasm of unspecified site of unspecified male breast; Z87.891 Personal history of nicotine dependence; Z79.01 Long term (current) use of anticoagulants; Z79.82 Long term (current) use of aspirin; Z79.899 Other long term (current) drug therapy
CPT/HCPCS: 36415; 71010; 80053; 82553; 83880; 84484; 85025; 85610; 85730; 93005; 96374; 96375; 96376

== ENCOUNTER 2016-05-09 07:48 | Outpatient (CLI) | payer MEDICARE ==
[2016-05-09 08:12] LABS: INR-International Normal Ratio 2.7; Prothrombin Time 28.6 SEC (12.0-14.7)
== END 2016-05-09 07:49 | disposition home or self-care (01) ==
LOC: MADLAB 07:48
PROVIDERS: ATTEND Internal Medicine Cardiovascular Disease
DX: I48.91 Unspecified atrial fibrillation (principal)
CPT/HCPCS: 36415; 85610

== ENCOUNTER 2016-05-22 07:43 | Outpatient (CLI) | payer MEDICARE ==
[2016-05-22 08:04] LABS: Bilirubin Negative (Negative); Blood, Urine Negative (Negative); Clarity Clear (Clear); Glucose, Urine (Dipstick) Negative (Negative); Leukocyte Negative (Negative); Nitrite Negative (Negative); Protein, Urine (Dipstick) Negative (Neg-Trace); Urobilinogen 0.2 mg/dL (0.2-1.0)
[2016-05-22 08:12] LABS: Bacteria/HPF None Seen HPF (None Seen); Other Microscopic Description C&S SET UP; RBC/HPF None Seen HPF (0-3); Squamous Epithelial 0-3 HPF (0-3); WBC/HPF None Seen HPF (0-3)
[2016-05-22 08:16] LABS: #Basophils 0.1 thou/uL (0.0-0.2); #Eosinphils 0.3 thou/uL (0.0-0.7); #Lymphocytes 1.4 thou/uL (1.20-3.40); #Monocytes 0.7 thou/uL (0.11-0.59); #Neutrophils 8.2 thou/uL (1.40-6.50); %Basophils 1.3 % (0.0-1.0); %Eosinophils 2.8 % (0.0-10.0); %Lymphocytes 12.8 % (21.0-51.0); %Monocytes 6.5 % (0.0-10.0); %Neutrophils 76.6 % (42.0-75.0); Mean Corpuscular HGB CONC 32.4 g/dL (32.0-36.0); Mean Corpuscular Volume 89.6 fl (80.0-94.0); Mean Platelet Volume 6.4 fL (7.4-10.4); Platelet Count 291 thou/uL (130-400); RBC Distribution Width 17.3 % (11.5-14.5); Red Blood Cell (RBC) Count 5.18 mill/uL (4.70-6.10); White Blood Cell (WBC) Count 10.7 thou/uL (4.8-10.8)
[2016-05-22 08:29] LABS: ALT (SGPT) 11 U/L (0-55); AST (SGOT) 19 U/L (5-34); Alkaline Phosphatase 200 U/L (40-150); Anion Gap 17 mmol/L (10-20); BUN (Urea Nitrogen) 21 mg/dL (8.4-25.7); Bilirubin, Direct 0.3 mg/dL (0.1-0.3); Bilirubin, Total 0.8 mg/dL (0.2-1.2); Calc. Creatinine Clearance 0 mL/min (70-130); Calcium 9.5 mg/dL (7.8-10.44); Carbon Dioxide 25 mmol/L (23-31); Chloride 100 mmol/L (98-107); Estimated GFR-MDRD 67; Glucose 133 mg/dL (83-110); Potassium 3.7 mmol/L (3.5-5.1); Protein, Total 7.9 g/dL (5.8-8.1); Sodium 138 mmol/L (136-145)
== END 2016-05-22 07:44 ==
LOC: MADLAB 07:43
PROVIDERS: ATTEND Urology
DX: C67.1 Malignant neoplasm of dome of bladder (principal); N20.0 Calculus of kidney
CPT/HCPCS: 36415; 80048; 80076; 81001; 85025; 87086

== ENCOUNTER 2016-06-07 07:47 | Outpatient (CLI) | payer MEDICARE ==
[2016-06-07 08:08] LABS: INR-International Normal Ratio 1.4; Prothrombin Time 17.8 SEC (12.0-14.7)
== END 2016-06-07 07:48 | disposition home or self-care (01) ==
LOC: MADLAB 07:47
PROVIDERS: ATTEND Internal Medicine Cardiovascular Disease
DX: I48.91 Unspecified atrial fibrillation (principal)
CPT/HCPCS: 36415; 85610

== ENCOUNTER 2016-06-13 08:04 | Outpatient (CLI) | payer MEDICARE ==
[2016-06-13 08:33] LABS: INR-International Normal Ratio 3.1; Prothrombin Time 31.3 SEC (12.0-14.7)
== END 2016-06-13 08:05 | disposition home or self-care (01) ==
LOC: MADLAB 08:04
PROVIDERS: ATTEND Internal Medicine Cardiovascular Disease
DX: I48.91 Unspecified atrial fibrillation (principal)
CPT/HCPCS: 36415; 85610

== ENCOUNTER 2016-06-19 10:16 | Emergency (ER) | payer MEDICARE ==
[2016-06-19 10:48] LABS: #Basophils 0.2 thou/uL (0.0-0.2); #Eosinphils 0.3 thou/uL (0.0-0.7); %Basophils 1.4 % (0.0-1.0); %Eosinophils 2.7 % (0.0-10.0); %Lymphocytes 9.1 % (21.0-51.0); %Neutrophils 77.8 % (42.0-75.0); Hemoglobin 14.3 g/dL (14.0-18.0); Mean Corpuscular HGB CONC 30.6 g/dL (32.0-36.0); Mean Corpuscular Hemoglobin 27.7 pg (27.0-31.0); Mean Corpuscular Volume 90.7 fl (80.0-94.0); Mean Platelet Volume 5.9 fL (7.4-10.4); Platelet Count 415 thou/uL (130-400); Red Blood Cell (RBC) Count 5.15 mill/uL (4.70-6.10); White Blood Cell (WBC) Count 11.5 thou/uL (4.8-10.8)
--- NOTE | 2016-06-19 10:52 | RAD ---
PORTABLE AP CHEST: Date: 06-19-16 History: Dyspnea. Comparison: 04-29-16 FINDINGS: Cardiac silhouette is mildly enlarged. There is mild pulmonary vascular congestion. Findings are sim ilar to the prior exam. There is a small left pleural effusion with probable tiny right pleural effu geoffrey. Vascular calcification is seen in the thoracic aorta. No other interval change. IMPRESSION: Evidence for mild CHF and small left and tiny right pleural effusions. POS: [facility]
[2016-06-19 10:54] LABS: INR-International Normal Ratio 3.9; Prothrombin Time 37.4 SEC (12.0-14.7)
[2016-06-19 11:05] LABS: CKMB 3.5 ng/mL (0-6.6)
[2016-06-19 11:06] LABS: ALT (SGPT) 41 U/L (0-55); AST (SGOT) 36 U/L (5-34); Albumin 3.8 g/dL (3.4-4.8); Alkaline Phosphatase 249 U/L (40-150); Anion Gap 15 mmol/L (10-20); BUN (Urea Nitrogen) 24 mg/dL (8.4-25.7); Bilirubin, Total 1.2 mg/dL (0.2-1.2); Calc. Creatinine Clearance 0 mL/min (70-130); Calcium 9.4 mg/dL (7.8-10.44); Carbon Dioxide 22 mmol/L (23-31); Chloride 104 mmol/L (98-107); Estimated GFR-MDRD 65; Glucose 103 mg/dL (83-110); Potassium 4.5 mmol/L (3.5-5.1); Protein, Total 7.8 g/dL (5.8-8.1); Sodium 136 mmol/L (136-145)
[2016-06-19] MEDS ORDERED: Furosemide 20 MG/2 ML VIAL ONE ×2 (11:34→12:10)
== END 2016-06-19 12:31 | disposition short-term general hospital (02) ==
LOC: MADERS 10:16
DX: I11.0 Hypertensive heart disease with heart failure (principal); I50.9 Heart failure, unspecified; I48.2 Chronic atrial fibrillation; E78.5 Hyperlipidemia, unspecified; J44.9 Chronic obstructive pulmonary disease, unspecified; Z87.891 Personal history of nicotine dependence; Z79.82 Long term (current) use of aspirin; Z79.01 Long term (current) use of anticoagulants; Z79.899 Other long term (current) drug therapy
CPT/HCPCS: 36415; 71010; 80053; 82553; 83880; 84484; 85025; 85610; 93005; 94760; 96374; 96376; J1940

== ENCOUNTER 2016-07-09 07:33 | Outpatient (CLI) | payer MEDICARE ==
[2016-07-09 08:18] LABS: INR-International Normal Ratio 3.1; Prothrombin Time 31.7 SEC (12.0-14.7)
== END 2016-07-09 07:34 | disposition home or self-care (01) ==
LOC: MADLAB 07:33
PROVIDERS: ATTEND Internal Medicine Cardiovascular Disease
DX: I48.91 Unspecified atrial fibrillation (principal)
CPT/HCPCS: 36415; 85610

== ENCOUNTER 2016-08-14 07:14 | Outpatient (CLI) | payer MEDICARE ==
[2016-08-14 08:18] LABS: INR-International Normal Ratio 2.3; Prothrombin Time 25.1 SEC (12.0-14.7)
[2016-08-14 08:26] LABS: Anion Gap 13 mmol/L (10-20); BUN (Urea Nitrogen) 23 mg/dL (8.4-25.7); Calc. Creatinine Clearance 0 mL/min (70-130); Calcium 9.6 mg/dL (7.8-10.44); Carbon Dioxide 27 mmol/L (23-31); Chloride 99 mmol/L (98-107); Estimated GFR-MDRD 81; Glucose 117 mg/dL (83-110); Potassium 4.1 mmol/L (3.5-5.1); Sodium 135 mmol/L (136-145)
[2016-08-14 09:14] LABS: Bacteria/HPF 1+ HPF (None Seen); Bilirubin Negative (Negative); Blood, Urine Small (Negative); Clarity Hazy (Clear); Glucose, Urine (Dipstick) Negative (Negative); Leukocyte Negative (Negative); Nitrite Positive (Negative); Protein, Urine (Dipstick) 100 mg/dL (Neg-Trace); RBC/HPF 0-3 HPF (0-3); Squamous Epithelial 0-3 HPF (0-3); Urobilinogen 0.2 mg/dL (0.2-1.0); pH, Urine 5.5 (5.0-9.0)
== END 2016-08-14 07:15 ==
LOC: MADLAB 07:14
PROVIDERS: ATTEND Family Medicine
DX: C67.1 Malignant neoplasm of dome of bladder (principal); R74.8 Abnormal levels of other serum enzymes
CPT/HCPCS: 36415; 80048; 81001; 84075; 85610; 87077; 87086

== ENCOUNTER 2016-08-23 07:15 | Outpatient (CLI) | payer MEDICARE ==
[2016-08-23 10:02] LABS: Bilirubin Negative (Negative); Blood, Urine Small (Negative); Clarity Hazy (Clear); Glucose, Urine (Dipstick) Negative (Negative); Leukocyte Negative (Negative); Nitrite Negative (Negative); Protein, Urine (Dipstick) 100 mg/dL (Neg-Trace); Urobilinogen 0.2 mg/dL (0.2-1.0); pH, Urine 5.5 (5.0-9.0)
[2016-08-23 10:31] LABS: Bacteria/HPF Rare-Few HPF (None Seen); WBC/HPF 0-3 HPF (0-3)
== END 2016-08-23 07:16 ==
LOC: MADLAB 07:15
PROVIDERS: ATTEND Urology
DX: C67.1 Malignant neoplasm of dome of bladder (principal); R31.29 Other microscopic hematuria; I48.91 Unspecified atrial fibrillation
CPT/HCPCS: 36415; 81001; 87086

== ENCOUNTER 2016-09-28 07:30 | Outpatient (CLI) | payer MEDICARE ==
[2016-09-28 08:25] LABS: INR-International Normal Ratio 2.4; Prothrombin Time 25.8 SEC (12.0-14.7)
== END 2016-09-28 07:31 | disposition home or self-care (01) ==
LOC: MADLAB 07:30
PROVIDERS: ATTEND Internal Medicine Cardiovascular Disease
DX: I48.91 Unspecified atrial fibrillation (principal)
CPT/HCPCS: 36415; 85610

== ENCOUNTER 2016-11-01 07:21 | Outpatient (CLI) | payer MEDICARE ==
[2016-11-01 08:28] LABS: INR-International Normal Ratio 2.3; Prothrombin Time 25.8 SEC (12.0-14.7)
== END 2016-11-01 07:22 | disposition home or self-care (01) ==
LOC: MADLABBHPM 07:21 → MADLAB 07:22
PROVIDERS: ATTEND Internal Medicine Cardiovascular Disease
DX: I48.91 Unspecified atrial fibrillation (principal)
CPT/HCPCS: 36415; 85610

== ENCOUNTER 2016-11-13 07:05 | Outpatient (CLI) | payer MEDICARE ==
[2016-11-13 07:55] LABS: Anion Gap 14 mmol/L (10-20); BUN (Urea Nitrogen) 25 mg/dL (8.4-25.7); Calc. Creatinine Clearance 0 mL/min (70-130); Calcium 9.5 mg/dL (7.8-10.44); Carbon Dioxide 30 mmol/L (23-31); Chloride 99 mmol/L (98-107); Estimated GFR-MDRD 70; Glucose 109 mg/dL (83-110); Potassium 3.4 mmol/L (3.5-5.1); Sodium 140 mmol/L (136-145)
[2016-11-13 10:19] LABS: Bilirubin Negative (Negative); Blood, Urine Trace (Negative); Clarity Clear (Clear); Glucose, Urine (Dipstick) Negative (Negative); Leukocyte Negative (Negative); Nitrite Negative (Negative); Protein, Urine (Dipstick) Negative (Neg-Trace); RBC/HPF 0-3 HPF (0-3); Specific Gravity, Urine 1.015 (1.005-1.030); Urobilinogen 0.2 mg/dL (0.2-1.0); WBC/HPF 0-3 HPF (0-3)
[2016-11-13 10:20] LABS: Bacteria/HPF Rare-Few HPF (None Seen); Squamous Epithelial 0-3 HPF (0-3)
== END 2016-11-13 07:06 | disposition home or self-care (01) ==
LOC: MADLAB 07:05
PROVIDERS: ATTEND Urology
DX: C67.1 Malignant neoplasm of dome of bladder (principal); N40.1 Benign prostatic hyperplasia with lower urinary tract symptoms; N35.9 Urethral stricture, unspecified; I48.91 Unspecified atrial fibrillation
CPT/HCPCS: 36415; 80048; 81001; 87086

== ENCOUNTER 2016-12-04 07:42 | Outpatient (CLI) | payer MEDICARE ==
[2016-12-04 17:28] LABS: INR-International Normal Ratio 3.3; Prothrombin Time 35.2 SEC (12.0-14.7)
== END 2016-12-04 07:43 | disposition home or self-care (01) ==
LOC: MADLAB 07:42
PROVIDERS: ATTEND Internal Medicine Cardiovascular Disease
DX: Z51.81 Encounter for therapeutic drug level monitoring (principal); I48.91 Unspecified atrial fibrillation; Z79.01 Long term (current) use of anticoagulants
CPT/HCPCS: 36415; 85610

== ENCOUNTER 2016-12-17 07:36 | Outpatient (CLI) | payer MEDICARE ==
[2016-12-17 08:16] LABS: INR-International Normal Ratio 1.9; Prothrombin Time 22.3 SEC (12.0-14.7)
== END 2016-12-17 07:37 | disposition home or self-care (01) ==
LOC: MADLAB 07:36
PROVIDERS: ATTEND Internal Medicine Cardiovascular Disease
DX: I48.91 Unspecified atrial fibrillation (principal)
CPT/HCPCS: 36415; 85610

== ENCOUNTER 2017-01-21 15:00 | Outpatient (CLI) | payer MEDICARE ==
[2017-01-21 15:04] LABS: INR-International Normal Ratio 3.8; Prothrombin Time 39.1 SEC (12.0-14.7)
== END 2017-01-21 15:01 | disposition home or self-care (01) ==
LOC: MADLAB 15:00
PROVIDERS: ATTEND Internal Medicine Cardiovascular Disease
DX: I48.91 Unspecified atrial fibrillation (principal)
CPT/HCPCS: 36415; 85610

== ENCOUNTER 2017-01-24 09:56 | Outpatient (CLI) | payer MEDICARE ==
--- NOTE | 2017-01-24 10:35 | RAD ---
PA AND LATERAL CHEST: History: Shortness of breath. Comparison: 09-05-16 FINDINGS: Heart size is enlarged. There are chronic lung changes. No focal infiltrative process or signs of fa ilure. IMPRESSION: Cardiomegaly with chronic appearing lung change. POS: OFF
[2017-01-24 11:09] LABS: Anion Gap 14 mmol/L (10-20); BUN (Urea Nitrogen) 19 mg/dL (8.4-25.7); Calc. Creatinine Clearance 0 mL/min (70-130); Calcium 9.7 mg/dL (7.8-10.44); Carbon Dioxide 28 mmol/L (23-31); Chloride 101 mmol/L (98-107); Estimated GFR-MDRD 78; Glucose 103 mg/dL (83-110); Potassium 3.5 mmol/L (3.5-5.1); Sodium 139 mmol/L (136-145)
== END 2017-01-24 09:57 | disposition home or self-care (01) ==
LOC: MADLABBHPM 09:56
PROVIDERS: ATTEND Family Medicine
DX: R60.0 Localized edema (principal)
CPT/HCPCS: 36415; 71020; 80048; 83880

== ENCOUNTER 2017-01-29 07:12 | Outpatient (CLI) | payer MEDICARE ==
[2017-01-29 07:52] LABS: INR-International Normal Ratio 3.6
[2017-01-29 07:59] LABS: Anion Gap 17 mmol/L (10-20); BUN (Urea Nitrogen) 53 mg/dL (8.4-25.7); Calc. Creatinine Clearance 0 mL/min (70-130); Calcium 10.3 mg/dL (7.8-10.44); Carbon Dioxide 31 mmol/L (23-31); Chloride 91 mmol/L (98-107); Estimated GFR-MDRD 38; Glucose 165 mg/dL (83-110); Potassium 3.2 mmol/L (3.5-5.1); Sodium 136 mmol/L (136-145)
== END 2017-01-29 07:13 | disposition home or self-care (01) ==
LOC: MADLABBHPM 07:12
PROVIDERS: ATTEND Family Medicine
DX: R60.0 Localized edema (principal); I48.91 Unspecified atrial fibrillation
CPT/HCPCS: 36415; 80048; 85610

== ENCOUNTER 2017-02-05 07:29 | Outpatient (CLI) | payer MEDICARE ==
[2017-02-05 08:41] LABS: Anion Gap 17 mmol/L (10-20); BUN (Urea Nitrogen) 35 mg/dL (8.4-25.7); Calc. Creatinine Clearance 0 mL/min (70-130); Calcium 9.9 mg/dL (7.8-10.44); Carbon Dioxide 32 mmol/L (23-31); Chloride 94 mmol/L (98-107); Estimated GFR-MDRD 70; Glucose 109 mg/dL (83-110); Potassium 3.1 mmol/L (3.5-5.1); Sodium 140 mmol/L (136-145)
[2017-02-05 08:56] LABS: INR-International Normal Ratio 1.9
== END 2017-02-05 07:30 | disposition home or self-care (01) ==
LOC: MADLABBHPM 07:29
PROVIDERS: ATTEND Internal Medicine Cardiovascular Disease
DX: E87.6 Hypokalemia (principal)
CPT/HCPCS: 36415; 80048; 85610

== ENCOUNTER 2017-02-13 07:22 | Outpatient (CLI) | payer MEDICARE ==
[2017-02-13 08:07] LABS: Prothrombin Time 23.5 SEC (12.0-14.7)
[2017-02-13 08:14] LABS: Anion Gap 16 mmol/L (10-20); BUN (Urea Nitrogen) 17 mg/dL (8.4-25.7); Calc. Creatinine Clearance 0 mL/min (70-130); Calcium 9.5 mg/dL (7.8-10.44); Carbon Dioxide 29 mmol/L (23-31); Chloride 102 mmol/L (98-107); Estimated GFR-MDRD 69; Glucose 116 mg/dL (83-110); Potassium 3.6 mmol/L (3.5-5.1); Sodium 143 mmol/L (136-145)
[2017-02-13 08:18] LABS: Bilirubin Negative (Negative); Blood, Urine Trace (Negative); Clarity Clear (Clear); Glucose, Urine (Dipstick) Negative (Negative); Leukocyte Negative (Negative); Nitrite Negative (Negative); Protein, Urine (Dipstick) Negative (Neg-Trace); Urobilinogen 0.2 mg/dL (0.2-1.0)
[2017-02-13 08:31] LABS: Bacteria/HPF Rare-Few HPF (None Seen); RBC/HPF 0-3 HPF (0-3); Squamous Epithelial 0-3 HPF (0-3); WBC/HPF 0-3 HPF (0-3)
== END 2017-02-13 07:23 | disposition home or self-care (01) ==
LOC: MADLABBHPM 07:22
PROVIDERS: ATTEND Internal Medicine Cardiovascular Disease
DX: C67.1 Malignant neoplasm of dome of bladder (principal); N28.9 Disorder of kidney and ureter, unspecified; R35.0 Frequency of micturition
CPT/HCPCS: 36415; 81001; 85610; 87086

== ENCOUNTER 2017-03-06 12:40 | Outpatient (CLI) | payer MEDICARE ==
[2017-03-06 13:17] LABS: Anion Gap 16 mmol/L (10-20); BUN (Urea Nitrogen) 21 mg/dL (8.4-25.7); Calc. Creatinine Clearance 0 mL/min (70-130); Calcium 9.7 mg/dL (7.8-10.44); Carbon Dioxide 27 mmol/L (23-31); Chloride 102 mmol/L (98-107); Estimated GFR-MDRD 74; Glucose 103 mg/dL (83-110); Potassium 3.6 mmol/L (3.5-5.1); Sodium 141 mmol/L (136-145)
== END 2017-03-06 12:41 | disposition home or self-care (01) ==
LOC: MADLABBHPM 12:40
PROVIDERS: ATTEND Family Medicine
DX: E87.6 Hypokalemia (principal)
CPT/HCPCS: 36415; 80048

== ENCOUNTER 2017-03-19 07:21 | Outpatient (CLI) | payer MEDICARE ==
[2017-03-19 08:32] LABS: INR-International Normal Ratio 3.1; Prothrombin Time 33.3 SEC (12.0-14.7)
== END 2017-03-19 07:22 | disposition home or self-care (01) ==
LOC: MADLAB 07:21
PROVIDERS: ATTEND Internal Medicine Cardiovascular Disease
DX: I48.91 Unspecified atrial fibrillation (principal)
CPT/HCPCS: 36415; 85610

== ENCOUNTER 2017-04-17 12:26 | Outpatient (CLI) | payer MEDICARE ==
--- NOTE | 2017-04-17 13:31 | RAD ---
TWO VIEWS OF THE CHEST: HISTORY: COPD and lower respiratory infection. COMPARISON: 01/24/2017 FINDINGS: Two views of the chest show an enlarged but stable cardiomediastinal silhouette. There are stable in creased interstitial markings. There is no evidence of consolidation, mass, or pleural effusion. De generative changes are seen in the spine. IMPRESSION: Cardiomegaly without evidence of acute cardiopulmonary disease. POS: [facility]
== END 2017-04-17 12:27 | disposition home or self-care (01) ==
LOC: MADRAD 12:26
PROVIDERS: ATTEND Family Medicine
DX: J44.0 Chronic obstructive pulmonary disease with (acute) lower respiratory infection (principal); I51.7 Cardiomegaly
CPT/HCPCS: 71046

== ENCOUNTER 2017-04-22 07:27 | Outpatient (CLI) | payer MEDICARE ==
[2017-04-22 08:12] LABS: INR-International Normal Ratio 2.9; Prothrombin Time 31.9 SEC (12.0-14.7)
[2017-04-22 08:22] LABS: ALT (SGPT) 26 U/L (8-55); AST (SGOT) 34 U/L (5-34); Albumin 3.6 g/dL (3.4-4.8); Alkaline Phosphatase 210 U/L (40-150); Anion Gap 15 mmol/L (10-20); BUN (Urea Nitrogen) 26 mg/dL (8.4-25.7); Calc. Creatinine Clearance 0 mL/min (70-130); Calcium 9.1 mg/dL (7.8-10.44); Carbon Dioxide 26 mmol/L (23-31); Cardiac Risk 3.5 (Less than 4.5); Chloride 105 mmol/L (98-107); Cholesterol 116 mg/dl (< 200 Desired); Estimated GFR-MDRD 64; Glucose 103 mg/dL (83-110); HDL Cholesterol 33 mg/dL (>60 Neg Risk); LDL Cholesterol, Calculated 54 mg/dL; Protein, Total 7.6 g/dL (5.8-8.1); Sodium 142 mmol/L (136-145); Triglycerides 144 mg/dL (Less than 150)
[2017-04-22 10:30] LABS: Bilirubin, Total 0.8 mg/dL (0.2-1.2)
== END 2017-04-22 07:28 | disposition home or self-care (01) ==
LOC: MADLABBHPM 07:27
PROVIDERS: ATTEND Internal Medicine Cardiovascular Disease
DX: E87.6 Hypokalemia (principal); E78.5 Hyperlipidemia, unspecified; I48.91 Unspecified atrial fibrillation
CPT/HCPCS: 36415; 80053; 80061; 85610

== ENCOUNTER 2017-05-22 07:03 | Outpatient (CLI) | payer MEDICARE ==
--- NOTE | 2017-05-22 08:16 | RAD ---
KUB: Indication: Concern for renal calculus. Comparison: 02-17-16 FINDINGS: No suspicious calculus is seen overlying the renal shadows or expected course of the renal collecting systems. Lung bases are clear. Bowel gas pattern is nonobstructed. There are scattered vascular calc ifications. There are scattered degenerative and osteoarthritic change. IMPRESSION: No renal calculus identified. POS: [facility]
--- NOTE | 2017-05-22 08:24 | ULT ---
RENAL ULTRASOUND: Comparison: 02-17-16 Indication: History of renal calculus. FINDINGS: Right renal length is 10.6 cm as demonstrated, and left renal length is 10.1 cm. No overt hydronephro sis. There are punctate foci of increased echogenicity of each kidney which may be on the basis of ti ny calculi. Urinary bladder is incompletely distended. There is no significant post void residual on the provided views. IMPRESSION: Probable punctate bilateral nephrolithiasis without obstructive uropathy or other acute renal abnorma lity evident. POS: [facility]
[2017-05-22 08:51] LABS: INR-International Normal Ratio 2.8; Prothrombin Time 30.7 SEC (12.0-14.7)
[2017-05-22 09:00] LABS: Bilirubin Negative (Negative); Blood, Urine Small (Negative); Clarity Clear (Clear); Glucose, Urine (Dipstick) Negative (Negative); Leukocyte Negative (Negative); Nitrite Negative (Negative); Protein, Urine (Dipstick) Trace mg/dL (Neg-Trace); Urobilinogen 0.2 mg/dL (0.2-1.0); pH, Urine 6.5 (5.0-9.0)
[2017-05-22 09:13] LABS: Bacteria/HPF Rare-Few HPF (None Seen); RBC/HPF 0-3 HPF (0-3); Squamous Epithelial 0-3 HPF (0-3); WBC/HPF 0-3 HPF (0-3)
[2017-05-22 09:27] LABS: Anion Gap 15 mmol/L (10-20); BUN (Urea Nitrogen) 22 mg/dL (8.4-25.7); Calc. Creatinine Clearance 0 mL/min (70-130); Calcium 9.5 mg/dL (7.8-10.44); Carbon Dioxide 26 mmol/L (23-31); Chloride 102 mmol/L (98-107); Estimated GFR-MDRD 83; Glucose 105 mg/dL (83-110); Potassium 4.1 mmol/L (3.5-5.1); Sodium 139 mmol/L (136-145)
== END 2017-05-22 07:04 | disposition home or self-care (01) ==
LOC: CANPRECLI → MADLAB 07:03
PROVIDERS: ATTEND Urology
DX: N20.0 Calculus of kidney (principal); C67.1 Malignant neoplasm of dome of bladder; I50.9 Heart failure, unspecified
CPT/HCPCS: 36415; 74018; 76770; 80048; 81001; 85610; 87086

== ENCOUNTER 2017-07-30 07:56 | Outpatient (CLI) | payer MEDICARE ==
[2017-07-30 09:09] LABS: Prothrombin Time 41.4 SEC (12.0-14.7)
== END 2017-07-30 07:57 | disposition home or self-care (01) ==
LOC: MADLAB 07:56
PROVIDERS: ATTEND Internal Medicine Cardiovascular Disease
DX: I48.91 Unspecified atrial fibrillation (principal)
CPT/HCPCS: 36415; 85610

== ENCOUNTER 2017-08-06 06:54 | Outpatient (CLI) | payer MEDICARE ==
[2017-08-06 07:25] LABS: INR-International Normal Ratio 3.3; Prothrombin Time 34.7 SEC (12.0-14.7)
== END 2017-08-06 06:55 | disposition home or self-care (01) ==
LOC: MADLAB 06:54
PROVIDERS: ATTEND Internal Medicine Cardiovascular Disease
DX: I48.91 Unspecified atrial fibrillation (principal)
CPT/HCPCS: 36415; 85610

== ENCOUNTER 2017-09-10 10:27 | Outpatient (CLI) | payer MEDICARE ==
[2017-09-10 11:57] LABS: Bilirubin Negative (Negative); Blood, Urine Small (Negative); Clarity Clear (Clear); Glucose, Urine (Dipstick) Negative (Negative); Leukocyte Negative (Negative); Nitrite Negative (Negative); Protein, Urine (Dipstick) 100 mg/dL (Neg-Trace)
[2017-09-10 12:03] LABS: Hemoglobin 13.7 g/dL (14.0-18.0); Mean Corpuscular HGB CONC 29.9 g/dL (32.0-36.0); Mean Corpuscular Hemoglobin 25.9 pg (27.0-31.0); Mean Corpuscular Volume 86.7 fl (80.0-94.0); Mean Platelet Volume 5.9 fL (7.4-10.4); Platelet Count 306 thou/uL (130-400); RBC Distribution Width 16.8 % (11.5-14.5); Red Blood Cell (RBC) Count 5.31 mill/uL (4.70-6.10); White Blood Cell (WBC) Count 10.1 thou/uL (4.8-10.8)
[2017-09-10 12:12] LABS: INR-International Normal Ratio 3.7; PTT 48.8 SEC (22.9-36.1); Prothrombin Time 38.2 SEC (12.0-14.7)
[2017-09-10 12:19] LABS: Anion Gap 14 mmol/L (10-20); BUN (Urea Nitrogen) 24 mg/dL (8.4-25.7); Calc. Creatinine Clearance 0 mL/min (70-130); Calcium 9.2 mg/dL (7.8-10.44); Carbon Dioxide 24 mmol/L (23-31); Chloride 103 mmol/L (98-107); Estimated GFR-MDRD 72; Glucose 128 mg/dL (83-110); Potassium 4.4 mmol/L (3.5-5.1); Sodium 137 mmol/L (136-145)
--- NOTE | 2017-09-10 12:22 | RAD ---
CHEST TWO VIEWS: HISTORY: Preop. COMPARISON: Chest radiograph from 04/17/2017. FINDINGS: Heart size is enlarged. Mild edema. Small effusions. No pneumothorax. No acute osseous abnormalit y. IMPRESSION: Cardiomegaly. Mild edema. Small effusions. POS: [facility]
== END 2017-09-10 10:28 | disposition home or self-care (01) ==
LOC: MADLAB 10:27
PROVIDERS: ATTEND Urology
DX: Z01.818 Encounter for other preprocedural examination (principal); J90 Pleural effusion, not elsewhere classified; R60.0 Localized edema; I51.7 Cardiomegaly; C67.9 Malignant neoplasm of bladder, unspecified; N20.0 Calculus of kidney; I48.91 Unspecified atrial fibrillation
CPT/HCPCS: 36415; 71046; 80048; 81003; 85027; 85610; 85730; 86850; 86900; 86901; 87086

== ENCOUNTER 2017-09-18 08:21 | Outpatient (CLI) | payer MEDICARE ==
[2017-09-18 09:56] LABS: INR-International Normal Ratio 2.1; Prothrombin Time 24.7 SEC (12.0-14.7)
[2017-09-18 10:03] LABS: ALT (SGPT) 22 U/L (8-55); AST (SGOT) 27 U/L (5-34); Albumin 3.8 g/dL (3.4-4.8); Alkaline Phosphatase 257 U/L (40-150); Anion Gap 15 mmol/L (10-20); BUN (Urea Nitrogen) 25 mg/dL (8.4-25.7); Bilirubin, Total 1.5 mg/dL (0.2-1.2); Calc. Creatinine Clearance 0 mL/min (70-130); Calcium 9.4 mg/dL (7.8-10.44); Carbon Dioxide 25 mmol/L (23-31); Cardiac Risk 2.9 (Less than 4.5); Chloride 101 mmol/L (98-107); Cholesterol 106 mg/dl (< 200 Desired); Estimated GFR-MDRD 54; Globulin 4.2 g/dL (2.4-3.5); Glucose 97 mg/dL (83-110); HDL Cholesterol 37 mg/dL (>60 Neg Risk); LDL Cholesterol, Calculated 49 mg/dL; Sodium 137 mmol/L (136-145); Triglycerides 98 mg/dL (Less than 150)
== END 2017-09-18 08:22 ==
LOC: MADLABBHPM 08:21
PROVIDERS: ATTEND Family Medicine
DX: E87.6 Hypokalemia (principal); E78.5 Hyperlipidemia, unspecified; I50.9 Heart failure, unspecified
CPT/HCPCS: 36415; 80053; 80061; 85610

== ENCOUNTER 2017-09-22 12:45 | Emergency (ER) | payer MEDICARE ==
[~2017-09-22 12:45] MED LIST: Sterile Water Irrigation 250 ML BOT ONE
--- NOTE | 2017-09-22 13:09 | RAD ---
PORTABLE AP CHEST XRAY: DATE: 09/22/17. HISTORY: Syncope. COMPARISON: 09/10/17. FINDINGS: Cardiac silhouette remains enlarged. Pulmonary vasculature is similar to prior study and is mildly enlarged. There are increased interstitial densities bilaterally which is similar to the study on 03/18 and findings may be related to an element of mild pulmonary edema and/or related to chronic joan g change. Vascular calcification is seen in the thoracic aorta. IMPRESSION: 1. Cardiomegaly with borderline pulmonary vascular congestion. 2. Increased interstitial densities similar to the prior study which could be related to mild chroni c lung changes or an element of pulmonary edema. POS: [facility]
[2017-09-22 13:11] LABS: #Basophils 0.1 thou/uL (0.0-0.2); #Eosinphils 0.3 thou/uL (0.0-0.7); #Lymphocytes 1.1 thou/uL (1.20-3.40); #Monocytes 0.8 thou/uL (0.11-0.59); #Neutrophils 5.9 thou/uL (1.40-6.50); %Basophils 1.8 % (0.0-1.0); %Eosinophils 3.8 % (0.0-10.0); %Lymphocytes 12.8 % (21.0-51.0); %Monocytes 9.6 % (0.0-10.0); Mean Corpuscular HGB CONC 29.4 g/dL (32.0-36.0); Mean Corpuscular Hemoglobin 25.2 pg (27.0-31.0); Mean Corpuscular Volume 85.5 fL (78.0-98.0); Mean Platelet Volume 5.9 fL (7.4-10.4); Platelet Count 344 thou/uL (130-400); RBC Distribution Width 17.1 % (11.5-14.5); Red Blood Cell (RBC) Count 5.15 mill/uL (4.70-6.10); White Blood Cell (WBC) Count 8.2 thou/uL (4.8-10.8)
[2017-09-22 13:16] LABS: INR-International Normal Ratio 2.6; PTT 36.4 SEC (22.9-36.1)
[2017-09-22 13:17] LABS: D-Dimer Test 1.35 *mcg/mL (0.27-0.43)
[2017-09-22 13:26] LABS: ALT (SGPT) 16 U/L (8-55); AST (SGOT) 24 U/L (5-34); Albumin 3.6 g/dL (3.4-4.8); Alkaline Phosphatase 226 U/L (40-150); Anion Gap 15 mmol/L (10-20); BUN (Urea Nitrogen) 24 mg/dL (8.4-25.7); Bilirubin, Total 1.1 mg/dL (0.2-1.2); Calc. Creatinine Clearance 0 mL/min (70-130); Carbon Dioxide 24 mmol/L (23-31); Chloride 105 mmol/L (98-107); Estimated GFR-MDRD 52; Globulin 3.9 g/dL (2.4-3.5); Glucose 126 mg/dL (83-110); Potassium 4.3 mmol/L (3.5-5.1); Protein, Total 7.5 g/dL (5.8-8.1); Sodium 140 mmol/L (136-145)
[2017-09-22 13:27] LABS: CKMB 1.5 ng/mL (0-6.6); Troponin I 0.012 ng/mL (< 0.028)
[2017-09-22 15:07] LABS: Bilirubin Small (Negative); Blood, Urine Trace (Negative); Glucose, Urine (Dipstick) Negative (Negative); Leukocyte Negative (Negative); Nitrite Positive (Negative); Protein, Urine (Dipstick) > or equal to 300 mg/dL (Neg-Trace)
[2017-09-22 15:09] LABS: Clarity Hazy (Clear)
[2017-09-22 15:10] LABS: Bacteria/HPF 3+ HPF (None Seen); RBC/HPF 0-3 HPF (0-3); Squamous Epithelial 0-3 HPF (0-3)
== END 2017-09-22 15:00 | disposition short-term general hospital (02) ==
LOC: MADERS 12:45
DX: R55 Syncope and collapse (principal); R74.8 Abnormal levels of other serum enzymes; I48.91 Unspecified atrial fibrillation; I10 Essential (primary) hypertension; E78.5 Hyperlipidemia, unspecified; J44.9 Chronic obstructive pulmonary disease, unspecified; Z87.891 Personal history of nicotine dependence; Z79.82 Long term (current) use of aspirin; Z79.01 Long term (current) use of anticoagulants; Z79.899 Other long term (current) drug therapy
CPT/HCPCS: 36415; 71045; 80053; 81003; 81015; 82274; 82553; 83605; 84484; 85025; 85379; 85610; 85730; 93005; 94760

== ENCOUNTER 2017-09-26 07:38 | Outpatient (CLI) | payer MEDICARE ==
[2017-09-26 08:43] LABS: ALT (SGPT) 19 U/L (8-55); AST (SGOT) 26 U/L (5-34); Albumin 3.6 g/dL (3.4-4.8); Alkaline Phosphatase 256 U/L (40-150); Bilirubin, Direct 0.7 mg/dL (0.1-0.3); Bilirubin, Total 1.2 mg/dL (0.2-1.2); Protein, Total 7.6 g/dL (5.8-8.1)
[2017-09-26 09:44] LABS: INR-International Normal Ratio 1.4; Prothrombin Time 17.5 SEC (12.0-14.7)
[2017-09-26 17:28] LABS: HBCM Index 0.05 S/CO (0-0.79); HBSAg Index 0.18 S/CO (0-0.99); Hep A IgM AB Non-Reactive (NonReactive); Hep A IgM S/CO 0.16 S/CO (0-0.79); Hep B Surf Ag Non-Reactive S/CO (NonReactive); Hep C IgG Ab Non-Reactive (NonReactive); Hep C Index 0.31 S/CO (0-0.79); Hepatitis B Core IGM Abs Non-Reactive (NonReactive)
== END 2017-09-26 07:39 ==
LOC: MADLABBHPM 07:38
PROVIDERS: ATTEND Family Medicine
DX: E80.6 Other disorders of bilirubin metabolism (principal); R74.8 Abnormal levels of other serum enzymes
CPT/HCPCS: 36415; 80074; 80076; 84075; 85610

== ENCOUNTER 2017-10-29 07:46 | Outpatient (CLI) | payer MEDICARE ==
[2017-10-29 10:35] LABS: Prothrombin Time 39.4 SEC (12.0-14.7)
[2017-10-29 11:21] LABS: INR-International Normal Ratio 4.1
== END 2017-10-29 07:47 | disposition home or self-care (01) ==
LOC: MADLAB 07:46
PROVIDERS: ATTEND Internal Medicine Cardiovascular Disease
DX: I48.91 Unspecified atrial fibrillation (principal)
CPT/HCPCS: 36415; 85610